=== PATIENT | female | born 1990 | race African-American/Black ===

== ENCOUNTER 2021-05-13 05:41 | Emergency (ER) | payer MEDICAID, OTHER ==
[~2021-05-13] VITALS: Ht 160 cm; Wt 53.7 kg
[2021-05-13 06:09] VITALS: BP 105/55
[2021-05-13] MEDS ORDERED: TOPUD PO (06:37)
[2021-05-13] MEDS ORDERED: ACETAMINOPHEN 325MG TABLET PO ONE (06:45)
== END 2021-05-13 06:57 | disposition home or self-care (01) ==
LOC: ER 05:41
DX: U07.1 COVID-19 (principal)
CPT/HCPCS: 99283; C9803; U0003; U0005

== ENCOUNTER 2022-01-14 09:43 | Observation (INO) | payer MEDICAID, OTHER ==
[~2022-01-14] VITALS: Ht 157.5 cm; Wt 59.0 kg
[~2022-01-14 09:43] MED LIST: TOPUD PO
[2022-01-14 11:05] LABS: CLARITY URINE CLOUDY (CLEAR); COLOR URINE YELLOW (YELLOW); KETONES URINE TRACE (NEGATIVE); LEUKOCYTE ESTERASE URINE 1+ (NEGATIVE); NITRITE URINE NEGATIVE (NEGATIVE); OCCULT BLOOD URINE NEGATIVE (NEGATIVE); PROTEIN URINE NEGATIVE (NEGATIVE); SPECIFIC GRAVITY URINE 1.023 (1.005-1.030); UROBILINOGEN URINE 0.2 E.U./dL (0.2-1.0)
[2022-01-14] MEDS ORDERED: LACTATED RINGERS 1,000 ML IV SCH (12:15)
[2022-01-14] MEDS ORDERED: CEFAZOLIN 2,000 MG in DEXT 5% WATER 100 ML IV NR (13:00)
== END 2022-01-14 13:45 | disposition home or self-care (01) ==
LOC: 8 EST A/PP 09:43
PROVIDERS: ADMIT Obstetrics & Gynecology; ATTEND Obstetrics & Gynecology
DX: O99.891 Other specified diseases and conditions complicating pregnancy (principal); M54.9 Dorsalgia, unspecified; O26.892 Other specified pregnancy related conditions, second trimester; R10.30 Lower abdominal pain, unspecified; Z3A.25 25 weeks gestation of pregnancy
CPT/HCPCS: 59025; 81003; 96365; G0378; J0690; J7060; 96360; 96361; 99281